=== PATIENT | female | born 1985 | race Two or more races ===

== ENCOUNTER 2022-11-03 21:36 | Emergency (ER) | payer OTHER ==
[~2022-11-03] VITALS: Ht 165.1 cm; Wt 99.8 kg
[2022-11-04] MEDS ORDERED: CEPHALEXIN500 MG PO (03:30)
== END 2022-11-04 03:36 ==
LOC: ER 21:36
DX: R10.31 Right lower quadrant pain (principal); N39.0 Urinary tract infection, site not specified; K76.0 Fatty (change of) liver, not elsewhere classified; Z87.09 Personal history of other diseases of the respiratory system; Z91.048 Other nonmedicinal substance allergy status